=== PATIENT | female | born 1940 | race Caucasian/White ===

== ENCOUNTER 2016-03-20 14:59 | Emergency (ER) | payer OTHER ==
[~2016-03-20] VITALS: Ht 175.3 cm; Wt 89.1 kg
[~2016-03-20 14:59] MED LIST: ALPRAZOLAM0.5 MG PO; AMITRIPTYLINE H25 MG PO; AMLODIPINE BESYL5 MG PO; ASPIR-TRIN325 M1 PO; ASPIRIN325 MG PO; Amoxicillin PO; Apresolin PO; CATAPRES-TTS 10.1 MG TD; CATAPRES0.1 MG PO; CENTRUM COMPLE1 EACH PO; COLACE100 MG PO; COUMADIN,JANTOVE4 MG PO; COZAAR100 MG PO; Coumadin dosing per PO; DEXTROSE 50%50 ML IV; DIABETA,MICRONAS5 MG PO; DIOVAN160 MG PO; Diabeta,Micronase PO; ECOTRIN325 MG PO; Elavil PO; FEXOFENADINE H180 M1 PO; GEODON20 MG PO; GLIPIZIDE5 MG PO; GLUCAGEN1 MG IM/SC; GLYBURIDE5 MG PO; HYDROCODON-ACE1 EAC7 PO; IRON325 M1 PO; LIPITOR40 MG PO; LOPRESSOR25 MG PO; LORCET 5-325 M1 EACH PO; METOPROLOL TART50 MG PO; NEXIUM40 MG PO; NITROSTAT,NITR0.4 M1 SL; NORVASC10 MG PO; NORVASC5 MG PO; NOVOLOG PE100 UNITS/ SC; PLAQUENIL200 MG PO; PRILOSEC20 MG PO; PROPOXYPHEN-AP1 EAC2 PO; PROTONIX40 MG PO; TRAZODONE HCL150 MG PO; TYLENOL EXTRA500 MG PO; Tylenol Regular Stre PO; Vitamin B-12 PO; WELLBUTRIN100 MG PO; XANAX0.5 MG PO; XARELTO10 MG PO; XARELTO15 MG PO; ZANTAC150 MG PO; ZESTORETIC,P1 TABLE2 PO; ZETIA10 MG PO; ZOLOFT50 MG PO; [UNRECOGNIZED DRUG - OTHER] OP; oxyCODONE PO
[2016-03-20 19:03] VITALS: BP 164/67
== END 2016-03-20 19:04 | disposition home or self-care (01) ==
LOC: EME 14:59
DX: S80.12XA Contusion of left lower leg, initial encounter (principal); Z88.0 Allergy status to penicillin
CPT/HCPCS: 93971; 99281; 99284